=== PATIENT | male | born 1975 | race Asian ===

== ENCOUNTER → 2017-04-13 | Outpatient (CLI) | payer BC | END | disposition home or self-care (01) | LOC: CFH 09:47 | PROVIDERS: ATTEND Internal Medicine Endocrinology, Diabetes & Metabolism | DX: C73 Malignant neoplasm of thyroid gland (principal); R59.9 Enlarged lymph nodes, unspecified; Z90.89 Acquired absence of other organs | CPT/HCPCS: 76536 ==

== ENCOUNTER → 2017-09-06 | Outpatient (CLI) | payer BC | END | disposition home or self-care (01) | LOC: EDSTATUS 09:15 → CFH 09:40 | PROVIDERS: ATTEND Internal Medicine Endocrinology, Diabetes & Metabolism | DX: R59.9 Enlarged lymph nodes, unspecified (principal); E89.0 Postprocedural hypothyroidism; R73.03 Prediabetes; Z85.850 Personal history of malignant neoplasm of thyroid | CPT/HCPCS: 76536 ==